=== PATIENT | female | born 1995 | race Two or more races ===

== ENCOUNTER 2016-06-08 14:30 | Emergency (ER) | payer OTHER ==
[~2016-06-08] VITALS: Ht 170.2 cm; Wt 59.0 kg
[2016-06-08] MEDS ORDERED: HYDROCODONE/APAP 5/325MG 1 EACH TABLET ONE (14:49)
[2016-06-08] MEDS ORDERED: HYDROCODONE/APAP 5/325MG 1 EACH TABLET PO ONE (15:00)
[2016-06-08 16:27] VITALS: BP 132/74
== END 2016-06-08 16:28 | disposition home or self-care (01) ==
LOC: ER 14:35
DX: S50.12XA Contusion of left forearm, initial encounter (principal); S20.219A Contusion of unspecified front wall of thorax, initial encounter; V49.40XA Driver injured in collision with unspecified motor vehicles in traffic accident, initial encounter; Y93.89 Activity, other specified; Y92.488 Other paved roadways as the place of occurrence of the external cause; Y99.8 Other external cause status
CPT/HCPCS: 71010; 73090; 99284; A4606; A6402; Z7610